=== PATIENT | male | born 1995 | race Caucasian/White ===

== ENCOUNTER 2019-04-28 03:05 | Emergency (ER) | payer OTHER ==
[2019-04-28] MEDS: KETOROLAC 30 MG INJ IM (04:46)
[2019-04-28 04:56] LABS: ADD UMIC NO; UR ASCORBIC ACID NEGATIVE (NEGATIVE); UR BILIRUBIN (Dip) NEGATIVE (NEGATIVE); UR BLOOD (Dip) NEGATIVE (NEGATIVE); UR CLARITY CLEAR (CLEAR); UR COLOR YELLOW (YELLOW); UR GLUCOSE (Dip) NEGATIVE (NEGATIVE); UR KETONES (Dip) NEGATIVE (NEGATIVE); UR LEUKOCYTE ESTERASE (Dip) NEGATIVE Leu/ul (NEGATIVE); UR NITRITE (Dip) NEGATIVE (NEGATIVE); UR TOTAL PROTEIN (Dip) NEGATIVE (NEGATIVE); UR UROBILINOGEN (Dip) NEGATIVE (NEGATIVE)
[2019-04-28 05:09] LABS: AMPHETAMINE/METHAMPHETAMINE Negative (NEGATIVE); BARBITURATES Negative (NEGATIVE); BENZODIAZEPINES Negative (NEGATIVE); CANNABINOIDS Positive (NEGATIVE); COCAINE Negative (NEGATIVE); OPIATES Negative (NEGATIVE)
== END 2019-04-28 06:03 | disposition home or self-care (01) ==
LOC: FTE 03:05
DX: R07.81 Pleurodynia (principal); F17.210 Nicotine dependence, cigarettes, uncomplicated; R07.89 Other chest pain
CPT/HCPCS: 71046; 80307; 81003; 96372; 99284-25

== ENCOUNTER 2019-08-21 15:27 | Emergency (ER) | payer OTHER ==
[2019-08-21] MEDS: AZITHROMYCIN 500 MG TAB PO (17:16)
[2019-08-21] MEDS: LIDOCAINE 1% (MDV) 20 ML INJ SC (17:16)
[2019-08-21] MEDS: CEFTRIAXONE 250 MG INJ IM (17:16)
== END 2019-08-21 17:43 | disposition home or self-care (01) ==
LOC: FTE 17:43
DX: N50.89 Other specified disorders of the male genital organs (principal)
CPT/HCPCS: 96372; 99284-25